=== PATIENT | female | born 1985 | race Caucasian/White ===

== ENCOUNTER 2021-09-15 18:37 | Outpatient (REF) | payer MEDICAID, SELFPAY ==
[2021-09-15 19:29] LABS: HCT 41.7 % (36.0-46.0); HGB 13.9 g/dL (11.2-15.7); MCH 29.6 pg (27.0-33.0); MCHC 33.3 % (32.0-36.0); MCV 88.7 fL (80-95); MPV 12.2 fL (8.0-11.0); Platelet Count 242 10^3/uL (130-400); RDW 12.5 % (11.7-14.6); RDW-SD 40.8 fL; WBC 4.45 10^3/uL (4.4-10.8)
[2021-09-15 19:50] LABS: ALT 28 U/L (14-59); AST 29 U/L (15-37); Albumin 4.4 g/dL (3.4-5.0); Alkaline Phosphatase 41 U/L (46-116); Anion Gap 10.3 mmol/L (3-11); BUN 15 mg/dL (7-18); Bilirubin, Total 0.5 mg/dL (0.2-1.0); CO2 25.7 mmol/L (21.0-32.0); CREATININE 0.7 mg/dL (0.55-1.02); Chloride 101 mmol/L (98-107); Glucose 81 mg/dL (74-106); Potassium 4.1 mmol/L (3.5-5.1); Sodium 137 mmol/L (136-145); TSH 1.52 uIU/mL (0.36-3.74); Total Protein 7.9 g/dL (6.4-8.2)
== END 2021-09-15 18:38 | disposition home or self-care (01) ==
LOC: LBN 18:37
PROVIDERS: PCP Nurse Practitioner Family; Visit Provider Nurse Practitioner Family
DX: R59.0 Localized enlarged lymph nodes (principal); R22.1 Localized swelling, mass and lump, neck; R53.83 Other fatigue; R61 Generalized hyperhidrosis
CPT/HCPCS: 80053; 85027; 84443

== ENCOUNTER 2021-09-16 00:59 | Outpatient (CLI) | payer MEDICAID, SELFPAY ==
--- NOTE | 2021-09-16 07:30 | DI.US_ITS ---
Exam(s) US SOFT TISSUE HEAD OR NECK EXAM: US SOFT TISSUE HEAD OR NECK CLINICAL HISTORY: left anterior neck lymph node vs mass,CERVICAL LYMPHADENOPATHY,R59.0. TECHNIQUE: Ultrasound was performed using standard protocol. COMPARISON: No exams were available for comparison FINDINGS: Sonographic assessment utilizing grayscale and color Doppler imaging was performed and targeted to th e area of clinical concern. There are 2 round hypoechoic nodules in the left neck corresponding to the palpable abnormality. The re are subcutaneous in location. They are not involved in the underlying musculature. The larger me asures 4 x 3 x 4 mm. The smaller measures 3 x 2 x 2 mm. There is a small amount of vasculature part icularly seen in the larger nodule. IMPRESSION: Two small sub 4 mm hypoechoic nodules in the left neck. They are nonspecific but may reflect small l ymph nodes or other benign lesions. There is no involvement seen in the underlying musculature. Fol low-up as clinically appropriate. DATA REPOSITORY:
== END 2021-09-16 01:19 ==
PROVIDERS: PCP Nurse Practitioner Family; Visit Provider Nurse Practitioner Family
DX: R59.0 Localized enlarged lymph nodes (principal); R22.1 Localized swelling, mass and lump, neck
CPT/HCPCS: 76536

== ENCOUNTER 2021-11-01 11:00 | Outpatient (REF) | payer MEDICAID, SELFPAY ==
--- NOTE | 2021-11-01 10:36 | VUL_PTH ---
PATIENT: Stacy Su LOC: [facility] U#:[id number] AGE/SX: 36/F ROOM: RE11/01/[address]: Sherita Manuel MD : [id number] BED: DIS: 11/01/2021 SPEC #: [id number] RECD: 11/01/21 12:52 STATUS: [facility] REQ #: [id number] KERRI: 11/01/21 10:[address]: Sherita Manuel DEPT: Surgical Specimen RECD BY: Yvonne Gaston ENTERED: 11/01/21 12:54 SP TYPE: VUL OTHR DR: Uche Sena, RESOURCE ENGINEER Tissues: 1 - SKIN BIOPSY(SHAVE/PUNCH) Procedures: SKIN LEVEL 4 SPECIAL STAIN 1 Comments: [id number]
== END 2021-11-01 11:01 | disposition home or self-care (01) ==
LOC: LBN 11:00
PROVIDERS: PCP Nurse Practitioner Family; Visit Provider Obstetrics & Gynecology
DX: N76.89 Other specified inflammation of vagina and vulva
CPT/HCPCS: 88305; 88312